=== PATIENT | female | born 1990 | race Caucasian/White ===

== ENCOUNTER 2016-06-20 16:43 | Emergency (ER) | payer OTHER, MEDICAID ==
[~2016-06-20] VITALS: Ht 180.3 cm; Wt 86.2 kg
[2016-06-20] MEDS ORDERED: METHOCARBAMOL 500 MG TABLET PO ONE (17:30)
[2016-06-20] MEDS ORDERED: KETOROLAC 30 MG/1 ML IM ONE (17:30)
[2016-06-20] MEDS ORDERED: HYDROcodone/APAP 5/325 TABLET PO ONE (17:30)
[2016-06-20] MEDS ORDERED: KETOROLAC 30 MG/1 ML ONE (17:38)
[2016-06-20] MEDS ORDERED: HYDROcodone/APAP 5/325 TABLET ONE (17:38)
[2016-06-20] MEDS ORDERED: METHOCARBAMOL 750 MG TABLET ONE (17:38)
[2016-06-20 19:09] VITALS: BP 123/78
== END 2016-06-20 19:11 | disposition home or self-care (01) ==
LOC: ED 18:50
DX: S16.1XXA Strain of muscle, fascia and tendon at neck level, initial encounter (principal); S39.012A Strain of muscle, fascia and tendon of lower back, initial encounter; G43.909 Migraine, unspecified, not intractable, without status migrainosus; Z87.891 Personal history of nicotine dependence; V49.9XXA Car occupant (driver) (passenger) injured in unspecified traffic accident, initial encounter; Y93.89 Activity, other specified; Y92.89 Other specified places as the place of occurrence of the external cause; Y99.8 Other external cause status
CPT/HCPCS: 96372; 99283; J1885

== ENCOUNTER 2017-02-16 11:49 | Emergency (ER) | payer MEDICAID, OTHER ==
[~2017-02-16] VITALS: Ht 177.8 cm; Wt 94.0 kg
[2017-02-16 13:23] VITALS: BP 138/102
[2017-02-16] MEDS ORDERED: DEXAMETHASONE 4 MG TABLET PO ONE (13:30)
[2017-02-16] MEDS ORDERED: BICILLIN-LA 1,200,000 UNITS/2 ML IM ONE (13:30)
[2017-02-16] MEDS ORDERED: DEXAMETHASONE 4 MG TABLET ONE (13:55)
== END 2017-02-16 14:25 | disposition home or self-care (01) ==
LOC: ED 14:15
DX: J03.80 Acute tonsillitis due to other specified organisms (principal); B95.8 Unspecified staphylococcus as the cause of diseases classified elsewhere; G43.909 Migraine, unspecified, not intractable, without status migrainosus; F17.210 Nicotine dependence, cigarettes, uncomplicated; K74.60 Unspecified cirrhosis of liver
CPT/HCPCS: 93005; 96372; 99283; J0561